=== PATIENT | male | born 1965 | race Caucasian/White ===

== ENCOUNTER → 2019-12-22 08:12 | Outpatient (BNVA) | payer OTHER, SELFPAY | PROVIDERS: Family Provider Family Medicine; PCP Family Medicine; Visit Provider Anesthesiology Pain Medicine | DX: M54.6 Pain in thoracic spine (principal); B02.29 Other postherpetic nervous system involvement; R07.1 Chest pain on breathing; F17.210 Nicotine dependence, cigarettes, uncomplicated; Z79.891 Long term (current) use of opiate analgesic | CPT/HCPCS: 99204; 99999 ==

== ENCOUNTER → 2020-01-23 09:24 | Outpatient (BNVA) | payer OTHER, SELFPAY | PROVIDERS: Family Provider Family Medicine; PCP Family Medicine; Visit Provider Anesthesiology Pain Medicine | DX: M54.9 Dorsalgia, unspecified (principal); R07.1 Chest pain on breathing; B02.29 Other postherpetic nervous system involvement; F17.220 Nicotine dependence, chewing tobacco, uncomplicated | CPT/HCPCS: 99212; 99213 ==